=== PATIENT | female | born 1950 | race Caucasian/White ===

== ENCOUNTER → 2020-07-20 08:20 | Outpatient (CLI) | payer MEDICARE, BC | END | disposition home or self-care (01) | LOC: D.CT 08:20 | PROVIDERS: ATTEND Family Medicine | DX: I65.22 Occlusion and stenosis of left carotid artery (principal) ==

== ENCOUNTER 2020-09-07 10:46 | Emergency (ER) | payer MEDICARE, BC ==
[~2020-09-07] VITALS: Ht 162.6 cm; Wt 61.4 kg
[2020-09-07 10:49] VITALS: Ht 162.6 cm; Wt 61.4 kg
[2020-09-07] MEDS ORDERED: CLONIDINE HCL0.1 MG PO (10:52)
[2020-09-07] MEDS ORDERED: SYNTHROID25 MCG PO (10:52)
[2020-09-07] MEDS ORDERED: LISINOPRIL-HCT1 EAC7 PO (10:53)
[2020-09-07] MEDS ORDERED: CRESTOR5 MG PO (10:53)
[2020-09-07] MEDS ORDERED: ASPIRIN81 MG PO (10:53)
[2020-09-07 11:28] VITALS: BP 117/63
[2020-09-07 11:30] LABS: ANION GAP 12.4 mmol/L (8-16); CALCIUM 9.5 mg/dL (8.5-10.1); CARBON DIOXIDE 28.4 mmol/L (21.0-32.0); CREATININE - SERUM 0.9 mg/dL (0.6-1.3); POTASSIUM - SERUM 4.8 mmol/L (3.5-5.1)
[2020-09-07 11:34] LABS: BASOPHILS 0.3 % (0-2); EOSINOPHILS 0.5 % (0-7); HEMATOCRIT 42.1 % (36.0-48.0); LYMPHOCYTES 16.5 % (15-50); MCH 28.7 pg (26.0-34.0); MCHC 33.4 g/dL (31.0-37.0); MCV 85.9 fL (80.0-100.0); MEAN PLATELET VOLUME 8.7 fL (7.4-10.4); NEUTROPHILS 75.7 % (40-80); PLATELET COUNT 239 10x3/uL (130-400); RDW 13.4 % (11.5-14.5); WBC 8.1 10x3/uL (4.8-10.8)
[2020-09-07 11:36] LABS: BILIRUBIN - TOTAL 0.56 mg/dL (0.2-1.3)
[2020-09-07 12:04] LABS: BILIRUBIN NEGATIVE (NEGATIVE); KETONE NEGATIVE (NEGATIVE); NITRITE NEGATIVE (NEGATIVE); UROBILINOGEN NORMAL mg/dL (< 2)
[2020-09-07 12:05] LABS: BACTERIA FEW HPF (NONE SEEN); SQUAMOUS EPITHELIAL 0-5 HPF (0-4); WHITE CELLS - URINE 0-5 HPF (0-4)
[2020-09-07] MEDS ORDERED: CEPHALEXIN500 M1 PO (12:29)
[2020-09-07 14:04] LABS: INR 1.06 (0.85-1.17); PROTIME 12.7 SECONDS (11.6-15.0)
[2020-09-07 14:12] LABS: APTT 31.1 SECONDS (22.8-39.4)
== END 2020-09-07 13:31 | disposition home or self-care (01) ==
LOC: D.ER 10:46
PROVIDERS: Emergency Medicine
DX: R55 Syncope and collapse (principal); N39.0 Urinary tract infection, site not specified; E87.1 Hypo-osmolality and hyponatremia; I10 Essential (primary) hypertension

== ENCOUNTER → 2020-09-25 09:56 | Outpatient (CLI) | payer MEDICARE, BC ==
[2020-09-07 10:49] VITALS: BMI 23.2
[~2020-09-25 09:56] MED LIST: ASPIRIN81 MG PO; CEPHALEXIN500 M1 PO; CLONIDINE HCL0.1 MG PO; CRESTOR5 MG PO; LISINOPRIL-HCT1 EAC7 PO; SYNTHROID25 MCG PO
== END | disposition home or self-care (01) ==
LOC: D.US 09:56
PROVIDERS: ATTEND Family Medicine
DX: E04.1 Nontoxic single thyroid nodule (principal)